=== PATIENT | female | born 1985 | race Hispanic/Latino ===

== ENCOUNTER 2022-06-21 14:56 | Emergency (ER) | payer SELFPAY ==
--- OUTSIDE RECORDS SUMMARY | 2022-06-21 15:00 | XMS REPORT | Continuity of Care Document ---
:1985 Author Organization [facility] t Address [address] [place] [address] Dr. Catalan [address] [place] [id number] Care Team Providers Name Role Phone Unavailable Unavailable Unavailable Problems This patient has no known problems. Allergies, Adverse Reactions, Alerts This patient has no known allergies or adverse reactions. Medications This patient has no known medications. Procedures This patient has no known procedures. Results This patient has no known results.
--- NOTE | 2022-06-21 18:11 | ER ---
Nurse's Notes [facility] Name: Kathia Stevens Age: 37 yrs Sex: Female : 1985 Arrival Date: 06/21/2022 Time: 15:07 Bed 10 Private MD: Diagnosis: Radiculopathy, cervical region;Pain in right arm;UTI/ Urinary tract infection, site not specified Presentation: 06/21 15:18 Chief complaint: Right shoulder pain that radiates to elbow and hand with numbness and hb tingling x 2 weeks. Pain is worse with stress, relieved by elevation and massage. Denies injury. Coronavirus screen: At this time, the client does not indicate any symptoms associated with coronavirus-19. Ebola Screen: No symptoms or risks identified at this time. Initial Sepsis Screen: Does the patient meet any 2 criteria? No. Patient's initial sepsis screen is negative. Does the patient have a suspected source of infection? No. Patient's initial sepsis screen is negative. Risk Assessment: Do you want to hurt yourself or someone else? Patient reports no desire to harm self or others. 15:18 Method Of Arrival: Ambulatory hb 15:18 Acuity: SHY 4 hb 20:33 Onset of symptoms is unknown. 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 - Social history:: Smoking status: Patient denies any tobacco usage or history of. Screenin:30 Abuse screen: Denies threats or abuse. Denies injuries from another. Nutritional ld1 screening: No deficits noted. Tuberculosis screening: No symptoms or risk factors identified. Fall Risk None identified. Assessment: 18:30 General: Appears in no apparent distress. comfortable, Behavior is calm, cooperative, ld1 appropriate for age. Pain: Denies pain. Neuro: Level of Consciousness is awake, alert, obeys commands, Oriented to person, place, time, situation. Cardiovascular: Capillary refill < 3 seconds Patient's skin is warm and dry. Respiratory: Airway is patent Respiratory effort is even, unlabored. GI: Abdomen is round non-distended. : No signs and/or symptoms were reported regarding the genitourinary system. EENT: No signs and/or symptoms were reported regarding the EENT system. Derm: No signs and/or symptoms reported regarding the dermatologic system. Musculoskeletal: Reports numbness in right arm. Vital Signs: 15:18 BP 136 / 66; Pulse 85; Resp 16; Temp 97.7; Pulse Ox 98% on R/A; Weight 98.88 kg; Height hb 4 ft. 11 in. (149.86 cm); Pain 7/10; 18:30 BP 149 / 88; Pulse 75; Resp 18; Pulse Ox 100% on R/A; ld1 15:18 Body Mass Index 44.03 (98.88 kg, 149.86 cm) hb ED Course: 15:07 Patient arrived in ED. mr 15:21 Triage completed. hb 15:21 Arm band placed on. hb 17:33 Lorie Alcaraz, VIVIENNE is Primary Nurse. ld1 17:34 Blake Bedoya MD is Attending Physician. joaquin 18:09 Naif Galvan MD is Referral Physician. joaquin 18:23 CBC with Diff Sent. mb7 18:23 Comprehensive Metabolic Panel Sent. mb7 18:23 Troponin High Sensitivity Sent. mb7 18:23 Inserted saline lock: 20 gauge in right antecubital area, using aseptic technique. mb7 Blood collected. 18:30 Patient has correct armband on for positive identification. Placed in gown. Bed in low ld1 position. Call light in reach. Side rails up X2. phototypesetting equipment monitor on. Pulse ox on. NIBP on. Door closed. Noise minimized. 18:30 No provider procedures requiring assistance completed. ld1 18:31 Chest Single View XRAY In Process Unspecified. EDMS 18:52 CT C Spine In Process Unspecified. EDMS 19:15 Primary Nurse role handed off by Lorie Alcaraz, VIVIENNE 1 19:15 Jolene Layton RN is Primary Nurse. bh1 19:27 Naif Galvan MD is Referral Physician. joaquin 20:32 IV discontinued, intact, bleeding controlled, No redness/swelling at site. 1 Administered Medications: 18:30 Drug: Decadron - Dexamethasone 10 mg Route: IVP; Site: right antecubital; ld1 20:34 Follow up: Response: No adverse reaction [facility] 18:30 Drug: Ketorolac 30 mg Route: IVP; Site: right antecubital; 1 20:33 Follow up: Response: No adverse reaction [facility] 18:30 Drug: Valium (diazepam) 5 mg Route: PO; ld1 20:33 Follow up: Response: No adverse reaction [facility] Medication: 18:30 VIS not applicable for this client. 1 Outcome: 18:10 Discharge ordered by . [facility] 19:27 Dis[address] ordered [address] . [facility] 20:32 Discharged to home ambulatory. [facility] 20:32 Condition: good 20:32 Discharge instructions given to patient, family, Instructed on discharge instructions, follow up and referral plans. medication usage, Demonstrated understanding of instructions, follow-up care, medications, Prescriptions given X 4. 20:34 Patient left the ED. [facility] Signatures: Dispatcher [employer] EDMS Blake Bedoya MD MD cha Rivera, Mary mr Baxter, Heather, RN RN Lorie Alcaraz RN RN [facility] Stephanie Arreaga Barbara, RN RN [facility]
--- NOTE | 2022-06-21 18:12 | EDPHYS ---
Physician Documentation [facility] Name: Kathia Stevens Age: 37 yrs Sex: Female : 1985 Arrival Date: 06/21/2022 Time: 15:07 Bed 10 Private MD: MAHI Physician Blake Bedoya HPI: 06/21 17:56 This 37 yrs old Female presents to ER via Ambulatory with complaints of Arm joaquin Pain, Numbness Of Arm. 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 - Social history:: Smoking status: Patient denies any tobacco usage or history of. ROS: 18:00 Constitutional: Negative for fever, chills, and weight loss, Eyes: Negative for injury, joaquin pain, redness, and discharge, ENT: Negative for injury, pain, and discharge, Cardiovascular: Negative for chest pain, palpitations, and edema, Respiratory: Negative for shortness of breath, cough, wheezing, and pleuritic chest pain, Abdomen/GI: Negative for abdominal pain, nausea, vomiting, diarrhea, and constipation, Back: Negative for injury and pain, : Negative for injury, bleeding, discharge, and swelling, MS/Extremity: Negative for injury and deformity, Skin: Negative for injury, rash, and discoloration, Neuro: Negative for headache, weakness, numbness, tingling, and seizure, Psych: Negative for depression, anxiety, suicide ideation, homicidal ideation, and hallucinations, Allergy/Immunology: Negative for hives, rash, and allergies, Endocrine: Negative for neck swelling, polydipsia, polyuria, polyphagia, and marked weight changes, Hematologic/Lymphatic: Negative for swollen nodes, abnormal bleeding, and unusual bruising. 18:00 Neck: Positive for pain with movement, pain at rest. Exam: 18:00 Constitutional: This is a well developed, well nourished patient who is awake, alert, joaquin and in no acute distress. Head/Face: Normocephalic, atraumatic. Eyes: Pupils equal round and reactive to light, extra-ocular motions intact. Lids and lashes normal. Conjunctiva and sclera are non-icteric and not injected. Cornea within normal limits. Periorbital areas with no swelling, redness, or edema. ENT: Nares patent. No nasal discharge, no septal abnormalities noted. Tympanic membranes are normal and external auditory canals are clear. Oropharynx with no redness, swelling, or masses, exudates, or evidence of obstruction, uvula midline. Mucous membranes moist. Neck: Trachea midline, no thyromegaly or masses palpated, and no cervical lymphadenopathy. Supple, full range of motion without nuchal rigidity, or vertebral point tenderness. No Meningismus. Chest/axilla: Normal chest wall appearance and motion. Nontender with no deformity. No lesions are appreciated. Cardiovascular: Regular rate and rhythm with a normal S1 and S2. No gallops, murmurs, or rubs. Normal PMI, no JVD. No pulse deficits. Respiratory: Lungs have equal breath sounds bilaterally, clear to auscultation and percussion. No rales, rhonchi or wheezes noted. No increased work of breathing, no retractions or nasal flaring. Abdomen/GI: Soft, non-tender, with normal bowel sounds. No distension or tympany. No guarding or rebound. No evidence of tenderness throughout. Back: No spinal tenderness. No costovertebral tenderness. Full range of motion. Skin: Warm, dry with normal turgor. Normal color with no rashes, no lesions, and no evidence of cellulitis. MS/ Extremity: Pulses equal, no cyanosis. Neurovascular intact. Full, normal range of motion. Neuro: Awake and alert, GCS 15, oriented to person, place, time, and situation. Cranial nerves II-XII grossly intact. Motor strength 5/5 in all extremities. Sensory grossly intact. Cerebellar exam normal. Normal gait. Psych: Awake, alert, with orientation to person, place and time. Behavior, mood, and affect are within normal limits. 18:28 ECG was reviewed by the Attending Physician. joaquin Vital Signs: 15:18 BP 136 / 66; Pulse 85; Resp 16; Temp 97.7; Pulse Ox 98% on R/A; Weight 98.88 kg; Height hb 4 ft. 11 in. (149.86 cm); Pain 7/10; 18:30 BP 149 / 88; Pulse 75; Resp 18; Pulse Ox 100% on R/A; ld1 15:18 Body Mass Index 44.03 (98.88 kg, 149.86 cm) hb MDM: 17:34 Patient medically screened. [facility] 18:02 Differential diagnosis: contusion, tendonitis. Data reviewed: vital signs, nurses [facility] notes, lab test result(s), EKG, radiologic studies, CT scan, plain films. Data interpreted: compliance monitor: rate is 85 beats/min, rhythm is regular, Pulse oximetry: on room air. Test interpretation: by ED physician or midlevel provider: ECG, plain radiologic studies. Counseling: I had a detailed discussion with the patient and/or guardian regarding: the historical points, exam findings, and any diagnostic results supporting the discharge/admit diagnosis, lab results, radiology results. 06/21 17:59 Order name: CBC with Diff; Complete Time: 19: [facility] 06/21 17:59 Order name: Comprehensive Metabolic Panel; Complete Time: : [facility] 06/21 17:59 Order name: Troponin High Sensitivity; Complete Time: 19: [facility] 06/21 18:30 Order name: Urine Dipstick-Ancillary; Complete Time: 19: [facility] 06/21 18:50 Order name: Urine --Ancillary (enter results); Complete Time: 19:26 06/21 17:59 Order name: CT C Spine; Complete Time: 19:26 [facility] 06/21 17:59 Order name: EKG; Complete Time: 17:59 [facility] 06/21 17:59 Order name: EKG - Nurse/Tech; Complete Time: 18:12 [facility] 06/21 18:00 Order name: Chest Single View XRAY; Complete Time: 19:26 [facility] 06/21 18:00 Order name: Urine Dipstick-Ancillary (obtain specimen); Complete Time: 18:24 [facility] 06/21 18:00 Order name: Urine Test (obtain specimen); Complete Time: 18:24 [facility] 06/21 18:24 Order name: IV Saline Lock; Complete Time: 18:24 mb7 EC:28 Rate is 77 beats/min. Rhythm is regular. QRS [place] is Normal. NC interval is normal. QRS joaquin interval is normal. QT interval is normal. No Q waves. T waves are Normal. No ST changes noted. Clinical impression: NSR w/ Non-specific ST/T Changes, LVH, and No evidence of ischemia. Interpreted by me. Reviewed by me. Administered Medications: 18:30 Drug: Decadron - Dexamethasone 10 mg Route: IVP; Site: right antecubital; ld1 20:34 Follow up: Response: No adverse reaction 1 18:30 Drug: Ketorolac 30 mg Route: IVP; Site: right antecubital; ld1 20:33 Follow up: Response: No adverse reaction [facility] 18:30 Drug: Valium (diazepam) 5 mg Route: PO; ld1 20:33 Follow up: Response: No adverse reaction 1 Disposition Summary: 06/21/22 19:27 Discharge Ordered Location: Home(06/21/22 19:27) joaquin Problem: new(06/21/22 19:27) joaquin Symptoms: have improved(06/21/22 19:27) joaquin Condition: Stable(06/21/22 19:27) joaquin Diagnosis - Radiculopathy, cervical region(06/21/22 19:27) joaquin - Pain in right arm joaquin - UTI/ Urinary tract infection, site not specified joaquin Followup: joaquin - With: Private Physician - When: 2 - 3 days - Reason: Recheck today's complaints, Continuance of care, Re-evaluation by your physician Followup: joaquin - With: Naif Galvan MD - When: 2 - 3 days - Reason: Recheck today's complaints, Re-evaluation by your physician Discharge Instructions: - Discharge Summary Sheet joaquin - Cervical Radiculopathy joaquin - Musculoskeletal Pain joaquin - Cervical Radiculopathy, [id number] joaquin - Urinary Tract Infection, Adult joaquin - Urinary Tract Infection, Adult, [id number] joaquin - Radicular Pain joaquin Forms: - Medication Reconciliation Form joaquin - Thank You Letter joaquin - Antibiotic Education joaquin - Prescription Opioid Use [facility] - Work release form [facility] Prescriptions: - dexamethasone 2 mg Oral tablet - take 1 tablet by ORAL route 2 times per day; 10 tablet; Refills: 0, Product joaquin Selection Permitted - Ibuprofen 600 mg Oral Tablet - take 1 tablet by ORAL route every 6 hours As needed take with food; 30 tablet; joaquin Refills: 0, Product Selection Permitted - Cyclobenzaprine 5 mg Oral Tablet - take 1 tablet by ORAL route 3 times per day As needed; 15 tablet; Refills: 0, joaquin Product Selection Permitted - Bactrim DS 800-160 mg Oral Tablet - take 1 tablet by ORAL route every 12 hours for 7 days; 14 tablet; Refills: 0, joaquin Product Selection Permitted Signatures: Dispatcher [employer] Blake Elizondo MD MD cha Baxter, Heather RN RN Lorie Alcaraz RN RN ld1 Stephanie Arreaga 7 Jolene Layton RN bh1 Corrections: (The following items were deleted from the chart) 18:14 18:10 Home joaquin joaquin 18:14 18:10 new joaquin joaquin 18:14 18:10 have improved joaquin joaquin 18:14 18:10 Stable joaquin joaquin 18:14 18:10 Pain in right upper arm joaquin joaquin 18:14 18:10 Radiculopathy, cervical region joaquin joaquin
[2022-06-21] MEDS ORDERED: DIAZEPAM 5 MG TABLET ONE (18:24)
[2022-06-21] MEDS ORDERED: dexAMETHasone 10 MG/ML VIAL ONE (18:25)
[2022-06-21] MEDS ORDERED: KETOROLAC 30 MG/ML INJ ONE (18:25)
[2022-06-21 18:29] LABS: Urine Blood 1+ (Negative); Urine Glucose Negative (Negative); Urine Protein Negative (Negative); Urine Specific Gravity 1.025 (1.005-1.030); Urine pH 5.5 (5.0-7.0)
[2022-06-21 18:44] LABS: Absolute Lymphocytes (CBC) 2.9 K/uL (0.7-4.9); Hematocrit 44.5 % (36.0-45.0); MCV 84.3 fL (80-100); MPV 7.1 fL (7.6-11.3); RBC Red Blood Cell Count 5.27 M/uL (3.86-4.86)
--- NOTE | 2022-06-21 18:53 | RAD REPORT ---
EXAM DESCRIPTION: RAD - Chest Single View - 06/21/2022 6:29 pm CLINICAL HISTORY: CHEST PAIN COMPARISON: None TECHNIQUE: AP portable chest image was obtained 06/21/2022 6:29 pm . FINDINGS: Lungs are clear. Heart and vasculature are normal. No measurable pleural effusion and no p neumothorax. No acute bony abnormality seen. No acute aortic findings suspected. IMPRESSION: No acute cardiopulmonary process.
[2022-06-21 18:55] LABS: Urine Specific Gravity/Preg 1.025 (1.005-1.030)
[2022-06-21 18:58] LABS: ALT/SGPT 15 U/L (12-78); AST/SGOT 7 U/L (15-37); Albumin 3.7 g/dL (3.4-5.0); Alkaline Phosphatase 72 U/L (45-117); BUN Blood Urea Nitrogen 9 mg/dL (7-18); Bicarbonate 27 mmol/L (21-32); Bilirubin Total 0.9 mg/dL (0.2-1.0); Glomerular Filtration Rate 118 ml/min (=/>90); Glucose Level 147 mg/dL (74-106); Potassium 3.6 mmol/L (3.5-5.1); Sodium Level 137 mmol/L (136-145); Troponin High Sensitivity < 3.0 pg/mL (<58.9)
--- NOTE | 2022-06-21 19:06 | RAD REPORT ---
EXAM DESCRIPTION: CT - C Spine Wo Con - 06/21/2022 6:50 pm CLINICAL HISTORY: Neck pain, right shoulder pain radiating to the elbow, numbness and tingling COMPARISON: None. TECHNIQUE: Axial 2 mm thick images of the cervical spine were obtained with sagittal and coronal rec onstruction images generated and reviewed. All CT scans are performed using dose optimization technique as appropriate and may include automated exposure control or mA/KV adjustment according to patient size. FINDINGS: Cervical bodies are normal in height. No subluxation abnormality. There is reversal of the usual cervical lordosis that is probably an artifact of positioning for the examination. Muscle spas m can create this alignment as well. C6-7 disc space narrowing seen with large anterior endplate spur s. No fracture or acute bony abnormality. No paraspinal mass or hematoma. No gross evidence for large disc herniation. However, central canal detail is inherently very limited on CT imaging of the C-spine. IMPRESSION: Negative CT cervical spine examination for acute or significant finding. Central canal detail is inherently limited. Follow-up outpatient MRI imaging can be performed as madhuri anted for better central canal detail.
[2022-06-21 20:48] VITALS: TEMP 97.7
[2022-06-21 20:57] VITALS: BP 149/88; O2SAT 100
--- NOTE | 2022-06-22 06:39 | EKG ---
Test Date: 2022-06-21 Test Time: 18:12:46 High Value Associate: ARON MEASUREMENT RESULTS: Intervals: Rate: 77 UT: 140 QRSD: 76 QT: 382 QTc: 432 Pawling: P: 1 UT: 140 QRS: -21 T: -3 INTERPRETIVE STATEMENTS: Normal sinus rhythm Moderate voltage criteria for LVH, may be normal variant Cannot rule out Septal infarct, age undetermined Abnormal ECG No previous ECG available for comparison Electronically Signed On 06-22-22 06:38:35 CDT by Reynaldo Whitehead
== END 2022-06-21 20:34 | disposition home or self-care (01) ==
LOC: ER 14:56
DX: M54.12 Radiculopathy, cervical region (principal); N39.0 Urinary tract infection, site not specified; Z88.5 Allergy status to narcotic agent
CPT/HCPCS: 36415; 71045; 72125; 80053; 81003; 81025; 84484; 85025; 93005; 96374; 96375; 99284; J1100

== ENCOUNTER 2024-03-04 18:17 | Emergency (ER) | payer SELFPAY ==
--- OUTSIDE RECORDS SUMMARY | 2024-03-04 18:20 | XMS REPORT | Continuity of Care Document ---
Author Name Unknown Address [address] [facility] [address]. 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
[2024-03-04] MEDS ORDERED: IBUPROFEN 400 MG TAB ONE (19:10)
[2024-03-04] MEDS ORDERED: TDAP (DIPHTH,PERTUSS(ACELL),TET VAC) 0.5 ML VIAL IMVAC ONE (19:10)
--- NOTE | 2024-03-04 19:21 | RAD REPORT ---
EXAM DESCRIPTION: RAD - Foot Left 3 View - 03/04/2024 7:09 pm CLINICAL HISTORY: Pain;Animal bite COMPARISON: <Comparisons> FINDINGS: Moderate posterior and plantar calcaneal spurs. No fracture or dislocation or radiopaque f oreign body.
--- NOTE | 2024-03-04 19:29 | EDPHYS ---
Physician Documentation [facility] Name: Kathia Stevens Age: 38 yrs Sex: Female : 1985 Arrival Date: 03/04/2024 Time: 18:17 Bed DX2 Private MD: ED Physician Hasmukh Walker HPI: 03/04 18:45 This 38 yrs old Female presents to ER via Ambulatory with complaints of Foot cp Pain - SWELLING, Dog Bite. 18:45 The patient presents with a bite, by a dog, pain, that is acute, swelling, tenderness. cp The complaints affect the dorsum of left foot. 18:45 Onset: The symptoms/episode began/occurred 1 week(s) ago. cp 18:45 Associated signs and symptoms: Pertinent positives: swelling, warmth, Pertinent cp negatives calf tenderness, fever, numbness, weakness. 18:45 Treatment prior to arrival includes: no previous treatment. 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 - Infectious Disease History:: Denies. - Social history:: Smoking status: Patient denies any tobacco usage or history of. ROS: 18:50 MS/extremity: Positive for bite, erythema, pain, swelling, tenderness, warmth, of the cp dorsum of left foot, 18:50 Constitutional: Negative for body aches, chills, fever, poor PO intake, cp 18:50 Cardiovascular: Negative for chest pain, cp 18:50 Respiratory: Negative for cough, wheezing, 18:50 Abdomen/GI: Negative for abdominal pain, vomiting, diarrhea, constipation, 18:50 Neuro: Negative for numbness, 18:50 All other systems are negative, Exam: 18:55 Constitutional: The patient appears in no acute distress, alert, awake, non-toxic, well cp developed, well nourished, obese, 18:55 Head/Face: Normocephalic, atraumatic. cp 18:55 Cardiovascular: Rate: normal, Pulses: Pulses are 2+ in left dorsalis pedis artery. 18:55 Respiratory: the patient does not display signs of respiratory distress, Respirations: normal, no use of accessory muscles, no retractions, labored breathing, is not present, Breath sounds: are clear throughout, 18:55 Back: pain, is absent, ROM is normal, 18:55 Musculoskeletal/extremity: Extremities: noted in the left foot: dorsal side 2 small superficial wounds, mild surrounding erythema and swelling, tenderness to palpation, Vital Signs: 18:33 BP 160 / 98; Pulse 107; Resp 18 S; Temp 98(TE); Pulse Ox 100% on R/A; Weight 90.72 kg as6 (R); Height 4 ft. 11 in. (R); Pain 8/10; 20:35 BP 147 / 81; Pulse 88; Resp 18 S; Pulse Ox 99% on R/A; as6 18:33 Body Mass Index 40.39 (90.72 kg, 149.86 cm) as6 18:33 Pain Scale: Adult as6 MDM: 18:37 Patient medically screened. cp 19:00 Differential diagnosis: closed fracture, contusion, cellulitis, abscess. cp 19:28 Data reviewed: vital signs, nurses notes, radiologic studies, plain films. cp 19:28 I considered the following discharge prescriptions or medication management in the emergency department Medications were administered in the Emergency Department. See MAR. Counseling: I had a detailed discussion with the patient and/or guardian regarding the historical points, exam findings, and any diagnostic results supporting the discharge/admit diagnosis, radiology results, the need for outpatient follow up, a family practitioner, to return to the emergency department if symptoms worsen or persist or if there are any questions or concerns that arise at home. Response to treatment: the patient's symptoms have mildly improved after treatment, and as a result, I will discharge patient. 03/04 18:39 Order name: XRAY Foot LEFT 3 View; Complete Time: 19:25 cp 03/04 19:25 Interpretation: Reviewed report. 03/04 19:25 Order name: Crutches; Complete Time: 20:32 cp Administered Medications: 19:17 Drug: Ibuprofen PO 800 mg PO once Route: PO; as6 20:32 Follow up: Response: No adverse reaction as6 19:17 Not Given (Product Out of Stock): tetanus toxoid,adsorbed0.5 ml IM once; Provide as6 Vaccine Information Statement (VIS). 19:17 Drug: Boostrix Tdap IM 0.5 ml IM once; as a single dose Route: IM; Site: left deltoid; as6 20:32 Follow up: Response: (VIS) Vaccine information sheet provided today. Questions and/or as6 concerns addressed. VIS edition date: Jul 02, 2021.; No adverse reaction 20:26 Drug: Amoxicillin-Clavulanate PO 875 mg PO once Route: PO; as6 20:32 Follow up: Response: No adverse reaction as6 20:26 Drug: Trimethoprim-Sulfamethoxazole PO (160 mg-800 mg (DS) 1 tablet PO once Route: PO; as6 20:31 Follow up: Response: No adverse reaction as6 Disposition Summary: 03/04/24 19:29 Discharge Ordered Notes: Location: Home cp Problem: new cp Symptoms: have improved cp Condition: Stable cp Diagnosis - Bitten by dog cp - Cellulitis of left lower limb cp Followup: cp - With: Private Physician - When: 1 - 2 days - Reason: Wound Recheck Discharge Instructions: - Discharge Summary Sheet cp - Cellulitis, Adult cp - Animal Bite, Adult cp Forms: - Medication Reconciliation Form cp - Thank You Letter cp - Antibiotic Education cp - Prescription Opioid Use cp - Patient Portal Instructions cp - Leadership Thank You Letter cp - Work release form as6 Prescriptions: - Augmentin 875-125 mg Oral Tablet - take 1 tablet ORAL route every 12 hours for 10 days; 20 tablet; Refills: 0, cp Product Selection Permitted - Ibuprofen 800 mg Oral Tablet - take 1 tablet ORAL route every 8 hours As needed take with food; 30 tablet; cp Refills: 0, Product Selection Permitted - Bactrim DS 800-160 mg Oral Tablet - take 1 tablet ORAL route every 12 hours for 10 days; 20 tablet; Refills: 0, cp Product Selection Permitted Signatures: Dispatcher [employer] Blake Velasquez PA PA cp Slawson, Ashby RN RN as6
--- NOTE | 2024-03-04 19:29 | ER ---
Nurse's Notes [facility] Name: Kathia Stevens Age: 38 yrs Sex: Female : 1985 Arrival Date: 03/04/2024 Time: 18:17 Bed DX2 Private MD: Diagnosis: Bitten by dog;Cellulitis of left lower limb Presentation: 03/04 18:33 Chief complaint: Patient states: "I got bit by dog a week ago and last night it started as6 to hurt me". Coronavirus screen: At this time, the client does not indicate any symptoms associated with coronavirus-19. Ebola Screen: No symptoms or risks identified at this time. Initial Sepsis Screen: Does the patient meet any 2 criteria? No. Patient's initial sepsis screen is negative. Does the patient have a suspected source of infection? No. Patient's initial sepsis screen is negative. Risk Assessment: Do you want to hurt yourself or someone else? Patient reports no desire to harm self or others. Onset of symptoms was February 26, 2024. 18:33 Acuity: SHY 4 as6 18:33 Method Of Arrival: Ambulatory as6 Triage Assessment: 18:35 General: Appears in no apparent distress. Behavior is calm, cooperative. Pain: as6 Complains of pain in dorsum of left foot. EENT: No deficits noted. No signs and/or symptoms were reported regarding the EENT system. Neuro: Level of Consciousness is awake, alert, obeys commands, Oriented to person, place, time, situation. Cardiovascular: Capillary refill < 3 seconds Patient's skin is warm and dry. Respiratory: Respiratory effort is even, unlabored, Respiratory pattern is regular, symmetrical. GI: No deficits noted. No signs and/or symptoms were reported involving the gastrointestinal system. : No deficits noted. No signs and/or symptoms were reported regarding the genitourinary system. Injury Description: Bite sustained to dorsum of left foot caused by a dog, is infected, from animal. APPRAISAL SPECIALIST: 18:36 LMP 02/26/2024, unknown as6 Historical: - Allergies: 18:36 Morphine; headache; as6 - Home Meds: 18:36 None [Active]; as6 - PMHx: 18:36 None; as6 - PSHx: 18:36 None; as6 - Immunization history:: Last tetanus immunization: not immunized. - Infectious Disease History:: Denies. - Social history:: Smoking status: Patient denies any tobacco usage or history of. Screenin:32 [facility] ED Fall Risk Assessment (Adult) History of falling in the last 3 months, as6 including since admission No falls in past 3 months (0 pts) Confusion or Disorientation No (0 pts) Intoxicated or Sedated No (0 pts) Impaired Gait No (0 pts) Mobility Assist Device Used No (0 pt) Altered Elimination No (0 pt) Score/Fall Risk Level 0 - 2 = Low Risk Oriented to surroundings, Maintained a safe environment, Educated pt \\T\\ family on fall prevention, incl call for assistance when getting out of bed, Assessed \\T\\ reinforced patient's understanding of fall precautions. Abuse screen: Denies threats or abuse. Denies injuries from another. Nutritional screening: No deficits noted. Tuberculosis screening: No symptoms or risk factors identified. Assessment: 20:35 Reassessment: Patient appears in no apparent distress at this time. as6 Vital Signs: 18:33 BP 160 / 98; Pulse 107; Resp 18 S; Temp 98(TE); Pulse Ox 100% on R/A; Weight 90.72 kg as6 (R); Height 4 ft. 11 in. (R); Pain 8/10; 20:35 BP 147 / 81; Pulse 88; Resp 18 S; Pulse Ox 99% on R/A; as6 18:33 Body Mass Index 40.39 (90.72 kg, 149.86 cm) as6 18:33 Pain Scale: Adult as6 ED Course: 18:20 Patient arrived in ED. mg5 18:29 Blake Richard PA is PHCP. cp 18:29 Hasmukh Walker MD is Attending Physician. cp 18:33 Arm band placed on right wrist. as6 18:36 Triage completed. as6 19:11 XRAY Foot LEFT 3 View In Process Unspecified. EDMS 20:32 Patient has correct armband on for positive identification. Provided Education on: abx as6 teaching, wound care. 20:35 No provider procedures requiring assistance completed. Patient did not have IV access as6 during this emergency room visit. Crutch training done. Administered Medications: 19:17 Drug: Ibuprofen PO 800 mg PO once Route: PO; as6 20:32 Follow up: Response: No adverse reaction as6 19:17 Not Given (Product Out of Stock): tetanus toxoid,adsorbed0.5 ml IM once; Provide as6 Vaccine Information Statement (VIS). 19:17 Drug: Boostrix Tdap IM 0.5 ml IM once; as a single dose Route: IM; Site: left deltoid; as6 20:32 Follow up: Response: (VIS) Vaccine information sheet provided today. Questions and/or as6 concerns addressed. VIS edition date: Jul 02, 2021.; No adverse reaction 20:26 Drug: Amoxicillin-Clavulanate PO 875 mg PO once Route: PO; as6 20:32 Follow up: Response: No adverse reaction as6 20:26 Drug: Trimethoprim-Sulfamethoxazole PO (160 mg-800 mg (DS) 1 tablet PO once Route: PO; as6 20:31 Follow up: Response: No adverse reaction as6 Medication: 19:18 Vaccine Information Statement (VIS) provided today. Questions and/or concerns as6 addressed. VIS edition date: July 02, 2021. Outcome: 19:29 Discharge ordered by . cp 20:35 Discharged to home ambulatory, with crutches, with significant other, as6 20:35 Condition: stable 20:35 Discharge instructions given to patient, Instructed on discharge instructions, follow up and referral plans. medication usage, crutch walking, wound care, Demonstrated understanding of instructions, follow-up care, medications, wound care, crutch walking, Prescriptions given X 3, 20:36 Patient left the ED. as6 Signatures: Dispatcher [employer] EDMS Blake Richard PA PA cp Slawson, Ashby, RN RN as6 Nicki Guerra mg5
[2024-03-04] MEDS ORDERED: AMOX/K CLAV 875 MG TAB ONE (20:22)
[2024-03-04] MEDS ORDERED: SMZ./TMP. 800/160 MG TABLET ONE (20:22)
[2024-03-05 03:07] VITALS: BP 147/81; TEMP 98; O2SAT 99
== END 2024-03-04 20:36 | disposition home or self-care (01) ==
LOC: ER 18:17
DX: L03.116 Cellulitis of left lower limb (principal); W54.0XXA Bitten by dog, initial encounter
CPT/HCPCS: 96372; 99284